=== PATIENT | male | born 1965 | race Caucasian/White ===

== ENCOUNTER 2016-08-25 15:25 | Emergency (ER) | payer OTHER ==
[~2016-08-25] VITALS: Ht 162.6 cm; Wt 52.6 kg
[~2016-08-25 15:25] MED LIST: LOTENSIN10 MG PO; LYRICA50 MG PO; VITAMIN B1100 MG PO; XANAX0.5 MG PO
--- NOTE | 2016-08-25 16:35 | ED SKIN/ALLERGY COMPLAINT ---
History of Present Illness General Chief Complaint: General Adult Stated Complaint: PT HAS A RED LINE UP THE LEFT LEG Source: patient, old records Exam Limitations: no limitations Vital Signs & Intake/Output Vital Signs & Intake/Output Vital Signs Date Time Temp Pulse Resp B/P B/P Pulse O2 O2 Flow FiO2 Mean Ox Delivery Rate 08/25 1741 99.0 97 18 138/79 98 Room Air 08/25 1535 99.5 08/25 1530 99.5 116 15 145/90 98 Room Air Room Air Allergies Coded Allergies: MDX - Oxycodone (OXYCODONE) (VOMITING 08/25/16) Uncoded Allergies: SEASONAL (Intermediate, 01/04/14) Reconcile Medications Alprazolam (Xanax) 0.5 MG TABLET 0.5 TAB PO BID ANXIETY (Reported) Amoxicillin/Potassium Clav (Augmentin 875-125 Tablet) 875 MG-125 MG TABLET 1 TAB PO BID cellulitis Benazepril Hydrochloride (Lotensin) 10 MG TAB 1 TAB PO DAILY HTN (Reported) Pregabalin (Lyrica) 50 MG CAPSULE 1 CAP PO TID NERVE PAIN (Reported) Thiamine (Vitamin B1) 100 MG TAB 1 TAB PO DAILY SUPPLEMENT (Reported) Triage Note: PT TO ED FOR COMPLAINT OF REDNESS TO LEFT LOWER LEG WITH SWELLING. PT REPORTS IT STARTED YESTERDAY AND HAS AGGRESSIVELY PROGRESSED UP HIS LEG INTO HIS GROIN AREA IN LESS THAN 24 HOURS. DENIES TRAUMA OR CUTS TO FOOT OR LEG. DENIES BEING BIT BY ANY INSECTS RECENTLY. LOW GRADE FEVER IN TRIAGE 99.5. SUBJECTIVE NIGHT SWEATS/FEVERS AT HOME. Triage Nurses Notes Reviewed? yes Onset: Abrupt Duration: day(s): (1), constant Timing: recent history Severity: mild, moderate Severity Numbers: 6 Location: extremities Possible Factors: no cause identified No Modifying Factors: none Associated Symptoms: chills HPI: 50-year-old male with no medical history presents to ER for evaluation complaining of redness and warmth to his left leg. Patient denies any known injury, however states he had a scab on his leg which he believes he scratched causing the symptoms. He reports to chills and subjective fevers at home. He states since this morning he said streaking going up his leg. No history of similar episodes in the past. No chest pain pain no shortness of breath. The patient denies any other complaints. No history of similar episodes no rashes to his skin no history of diabetes (JUSTICE SNOW) Past History Travel History Traveled to [place] past 21 day No Medical History Any Pertinent Medical History? 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 No (JUSTICE SNOW) Review of Systems Review of Systems Constitutional: Reports: see HPI. All Other Systems: Reviewed and Negative Comments Review of systems: See HPI, All other systems negative. Constitutional, no chills no fever, no malaise HEENT: No visual changes no sore throat no congestion, no ear pain Cardiovascular: No chest pain , no palpitation Skin: no rashes, no change in skin Respiratory: No dyspnea no cough no sputum GI: No nausea no vomiting, no diarrhea, Muscle skeletal: No joint pain, no joint swelling, no back pain, no neck pain, Neurologic: No numbness no confusion, no headache Psych: No stress Heme/endocrine: No bruising Immunology: No lymphadenopathy (JUSTICE SNOW) Physical Exam Physical Exam General Appearance: well developed/nourished, alert, awake Comments: Well-developed well-nourished person in no acute distress HEENT: Normal EENT exam; PERRL, EOMI. HEAD is atraumatic. moist mucous membranes. Neck: Supple,normal range of motion without pain or tenderness Back: Nontender, no CVA tenderness. Full range of motion Cardiovascular: Regular rate and rhythms no murmurs rubs Respiratory: No respiratory distress. Patient speaking in full complete sentences. Breath sounds clear to auscultation bilaterally: NO W/R/R Abdomen: Soft, nontender Extremity: No edema, full range of motion of extremities, normal and equal pulses bilaterally, 5 out of 5 strength noted to bilateral upper and lower extremities Neuro: Alert oriented x3, motor sensory normal, cranial nerves II through XII grossly intact. There were no obvious focal neurologic abnormalities. Skin: There is erythema over the anterior left leg with streaking upskin is warm and dry. Psych: Mood and affect is normal, memory and judgment is normal. (JUSTICE SNOW) Progress Differential Diagnosis: abscess/cellulitis, allergic reaction, angioedema, LYMPHANGITIS, DVT, CONTUSION, Plan of Care: Orders Procedure Date/time Status BLOOD CULTURE 08/25 154 Active LACTIC ACID 08/25 1546 Complete COMPREHENSIVE METABOLIC PANEL 08/25 154 Complete CBC WITHOUT DIFFERENTIAL 08/25 154 Complete Laboratory Tests 08/25/16 1846: Lactic Acid Cancelled 08/25/16 1600: Anion Gap 17 H, Estimated GFR > 60, BUN/Creatinine Ratio 6.7 L, Glucose 104 H , Lactic Acid 1.8, Calcium 8.2 L, Total Bilirubin 0.6, AST 107 H, ALT 72, Alkaline Phosphatase 78, Total Protein 7.1, Albumin 4.1, Globulin 3.0, Albumin/ Globulin Ratio 1.4, CBC w Diff NO MAN DIFF REQ, RBC 4.64 L, MCV 96.8 H, MCH 33.7 H, RDW 13.7, MPV 8.1, Gran % 71.8, Lymphocytes % 10.1 L, Monocytes % 15.1 H, Eosinophils % 2.7, Basophils % 0.3, Absolute Granulocytes 6.2, Absolute Lymphocytes 0.9 L, Absolute Monocytes 1.3 H, Absolute Eosinophils 0.2, Absolute Basophils 0, PUBS MCHC 34.9 Microbiology 08/25 1650 BLOOD: Blood Culture - RECD 08/25 1600 BLOOD: Blood Culture - RECD Case and labs discussed with Dr. Osborn the patient was offered and recommended admission which she is declining he will return to ER in 48 hours, prescription for Augmentin provided he received Unasyn here, he feels comfortable plan I discussed with him return precautions anytime sooner with any concerns answered all his questions they feel comfortable plan cleared for discharge (JUSTICE SNOW) Departure Departure Time of Disposition: 1728 Disposition: HOME OR SELF CARE Condition: Stable Clinical Impression Primary Impression: Cellulitis Referrals: YURY PATEL MD (PCP/Family) Additional Instructions: augmentin as directed, return to the ER in 2 days for wound check. tylenol or motrin for fever, chills, return at anytime sooner if your symptoms worsen or you have any other concerns. this was sent to [facility] Departure Forms: Customer Survey General Discharge Information Prescriptions: Current Visit Scripts Amoxicillin/Potassium Clav (Augmentin 875-125 Tablet) 1 TAB PO BID #20 TAB (JUSTICE SNOW) PA/SENIOR PREMIUM AUDITOR Co-Sign Statement Statement: ED Attending supervision documentation- [] I saw and evaluated the patient. I have also reviewed all the pertinent lab results and diagnostic results. I agree with the findings and the plan of care as documented in the PA's/SENIOR PREMIUM AUDITOR's documentation. [X] I have reviewed the ED Record and agree with the PA's/SENIOR PREMIUM AUDITOR's documentation. [] Additions or exceptions (if any) to the PAs/SENIOR PREMIUM AUDITOR's note and plan are summarized below: [] (MERISSA CANDELARIO,ALEKSANDAR Mcneil)
[2016-08-25 16:56] LABS: ABSOLUTE BASOPHIL COUNT 0 /CUMM (0.0-0.2); ABSOLUTE EOSINOPHIL COUNT 0.2 /CUMM (0.0-0.7); ABSOLUTE GRANULOCYTE CT 6.2 /CUMM (1.4-6.5); ABSOLUTE LYMPH COUNT 0.9 /CUMM (1.2-3.4); ABSOLUTE MONOCYTE COUNT 1.3 /CUMM (0.10-0.60); BASOPHIL % 0.3 % (0.0-2.0); EOSINOPHIL % 2.7 % (0-5); HEMATOCRIT 44.9 % (42-52); MEAN CORPUSCULAR HGB 33.7 PG (27.0-31.0); MEAN CORPUSCULAR HGB CONC 34.9 G/DL (33.0-37.0); MEAN CORPUSCULAR VOLUME 96.8 FL (80.0-94.0); MEAN PLATELET VOLUME 8.1 FL (7.4-10.4); RBC DISTRIBUTION WIDTH 13.7 % (11.5-14.5); RED BLOOD CELL CT 4.64 /CUMM (4.70-6.10); WHITE BLOOD CELL COUNT 8.7 /CUMM (4.8-10.8)
[2016-08-25 16:59] LABS: GRANULOCYTE % 71.8 % (42.2-75.2); PLATELET COUNT 100 /CUMM (130-400)
[2016-08-25] MEDS ORDERED: AUGMENTIN 875-1 EACH PO (17:31)
[2016-08-25 17:41] VITALS: BP 138/79
== END 2016-08-25 17:42 ==
LOC: ERH 15:25
PROVIDERS: Emergency Medicine
DX: L03.116 Cellulitis of left lower limb (principal)
CPT/HCPCS: 87040; 96374

== ENCOUNTER 2016-08-27 10:33 | Emergency (ER) | payer OTHER ==
[~2016-08-27 10:33] MED LIST changes: +AUGMENTIN 875-1 EACH PO
[2016-08-27 10:39] VITALS: BP 144/90
[2016-08-27] MEDS ORDERED: XANAX0.5 M1 PO ×3 (10:48→10:50)
--- NOTE | 2016-08-27 10:50 | ED SKIN/ALLERGY COMPLAINT ---
History of Present Illness General Chief Complaint: Suture Removal/Wound Recheck Stated Complaint: CELLULITIS Source: patient, old records Exam Limitations: no limitations Vital Signs & Intake/Output Vital Signs & Intake/Output Vital Signs Date Time Temp Pulse Resp B/P B/P Pulse O2 O2 Flow FiO2 Mean Ox Delivery Rate 08/27 1039 98.2 88 22 144/90 98 Allergies Coded Allergies: MDX - Oxycodone (OXYCODONE) (VOMITING 08/25/16) Uncoded Allergies: SEASONAL (Intermediate, 01/04/14) Reconcile Medications Alprazolam (Xanax) 0.5 MG TABLET 0.5 TAB PO BID ANXIETY (Reported) Alprazolam (Xanax) 0.5 MG TABLET 1 TAB PO BIDP PRN anxiety Amoxicillin/Potassium Clav (Augmentin 875-125 Tablet) 875 MG-125 MG TABLET 1 TAB PO BID cellulitis Benazepril Hydrochloride (Lotensin) 10 MG TAB 1 TAB PO DAILY HTN (Reported) Pregabalin (Lyrica) 50 MG CAPSULE 1 CAP PO TID NERVE PAIN (Reported) Thiamine (Vitamin B1) 100 MG TAB 1 TAB PO DAILY SUPPLEMENT (Reported) Triage Note: PER PT ASKED TO RETURN HAD CELLULITIS FROM L ANKLE TO GRION PER PT BETTER BUT NEEDS TO FOLLOW UP. Triage Nurses Notes Reviewed? yes Onset: Abrupt Duration: day(s): (3), better (improving), constant Timing: recent history Severity: mild Severity Numbers: 3 Location: extremities Possible Factors: no cause identified No Modifying Factors: none Associated Symptoms: denies HPI: 50-year-old male represents to the ER for evaluation for wound checkup she was seen here 2 days ago by myself for cellulitis for which he is now been on Augmentin. He states since being here he has had noted improvement in his rash, streaking that was going up his leg into his groin has resolved. He denies any fever chills pain no leg swelling no chest pain shortness of breath. He denies any other complaints The patient is also requesting a refill of Xanax which he takes for anxiety he is been unable to follow-up with his primary care physician-his father has been hospitalized which is causing added stress Past History Travel History Traveled to [place] past 21 day No Medical History Any Pertinent Medical History? see below for history Neurological: NONE EENT: NONE Cardiovascular: NONE Respiratory: NONE Gastrointestinal: NONE Hepatic: NONE Renal: NONE Musculoskeletal: NONE Psychiatric: anxiety Endocrine: NONE Blood Disorders: NONE Cancer(s): NONE SHED HAND/Reproductive: NONE Surgical History Surgical History: none Psychosocial History What is your primary language Turkish Tobacco Use: Never used Family History Hx Contributory? No Review of Systems Review of Systems Constitutional: Reports: see HPI. All Other Systems: Reviewed and Negative Comments Review of systems: See HPI, All other systems negative. Constitutional, no chills no fever, no malaise HEENT: no sore throat no congestion, no ear pain Cardiovascular: No chest pain , no palpitation Skin: SEE HPI Respiratory: No dyspnea no cough no sputum no hemoptysis GI: No nausea no vomiting, no diarrhea, no bloating/constipation : No dysuria Muscle skeletal: No joint pain, no joint swelling, no back pain, no neck pain, Neurologic no headache Psych: No stress . Heme/endocrine: No bruising no bleeding Immunology: No lymphadenopathy Physical Exam Physical Exam General Appearance: well developed/nourished, no apparent distress, alert Comments: Well-developed well-nourished person in no acute distress HEENT: Normal EENT exam; PERRL, EOMI. HEAD is atraumatic. moist mucous membranes. Neck: Supple,normal range of motion without pain or tenderness Back: Nontender, no CVA tenderness. Full range of motion Cardiovascular: Regular rate and rhythms no murmurs rubs Respiratory: No respiratory distress. Patient speaking in full complete sentences. Breath sounds clear to auscultation bilaterally: NO W/R/R Abdomen: Soft, nontender Extremity: No edema, full range of motion of extremities, normal and equal pulses bilaterally, 5 out of 5 strength noted to bilateral upper and lower extremities Neuro: Alert oriented x3, motor sensory normal, There were no obvious focal neurologic abnormalities. Skin: There is improving erythema over the anterior left leg, the streaking that was present up the leg into the groin has resolved, warm and dry. Psych: Mood and affect is normal, memory and judgment is normal. Progress Differential Diagnosis: abscess/cellulitis, allergic reaction, contact dermatitis, shingles Plan of Care: Patient has noted improvement in erythema there remains a small patch of erythema warmth over the medial aspect of the lower black, discussed the patient plan of care he is nontoxic-appearing no fever no chills I do not believe he requires admission at this time however I stressed with him that I would like to see him back here and an additional 48 hours, return precautions were provided in terms of returning at anytime sooner with any concerns. Answered all his questions and he feels comfortable this plan advise continue the Augmentin as prescribed originally Departure Departure Time of Disposition: 1042 Disposition: HOME OR SELF CARE Condition: Stable Clinical Impression Primary Impression: Cellulitis Referrals: JORGE CANDELARIO,YURY (PCP/Family) Additional Instructions: continue taking the antibiotics as prescribed. Follow up with your pmd, or return on tuesday for wound check IF the redness and warmth persist otherwise continue taking the antibiotics and finish the course. If you redevelop streaking up your skin, develop fever, chills, night sweats, or worsening rash return to the ER immediately. return at anytime sooner with any concerns xanax as directed. follow up with your pmd for future refills Departure Forms: Customer Survey General Discharge Information Prescriptions: Current Visit Scripts Alprazolam (Xanax) 1 TAB PO BIDP PRN anxiety #10 TAB
== END 2016-08-27 10:53 ==
LOC: ERH 10:33
DX: Z48.01 Encounter for change or removal of surgical wound dressing (principal)
CPT/HCPCS: 99281